=== PATIENT | female | born 1955 | race Caucasian/White ===

== ENCOUNTER 2016-06-20 10:31 | Outpatient (CLI) ==
--- NOTE | 2016-06-20 11:15 | MAMMO ---
EXAM: Bilateral digital screening mammogram History: Screening Comparison: Bilateral mammogram 06/14/2015 Findings: MLO and CC views of bilateral breasts demonstrate extremely dense breast parenchyma which limits the sensitivity of mammography. Stable benign bilateral vascular calcifications. There are no dominant masses, no suspicious microcalcifications and no architectural distortions Impression: Benign stable mammogram. Recommend followup routine screening mammography in 1 year. BIRADS 2
== END 2016-06-20 10:32 | disposition home or self-care (01) ==
LOC: RAD 10:31
PROVIDERS: ATTEND Nurse Practitioner Obstetrics & Gynecology
DX: Z12.31 Encounter for screening mammogram for malignant neoplasm of breast (principal)

== ENCOUNTER 2016-10-30 06:57 | Day surgery (SDC) ==
[2016-10-30] MEDS ORDERED: LIDOCAINE 1% 20 ML MDV ID ONE (07:16)
[2016-10-30] MEDS ORDERED: VERSED ONE (07:50)
[2016-10-30] MEDS ORDERED: DIPRIVAN 20 ML VIAL IVP ONE (07:50)
[2016-10-30 09:21] VITALS: BP 112/64; TEMP 98.2
--- NOTE | 2016-10-31 08:47 | OP ---
INDICATIONS FOR PROCEDURE: 61 year old female presents for a screening colonoscopy exam. She has a family history of colon cancer involving a grandfather and a cousin. MEDICATIONS: SEE ANESTHESIA NOTES. PROCEDURE: COLONOSCOPY. REPORT: The risks, benefits, alternatives and limitations were discussed in detail with the patient. Informed consent was obtained. After adequate sedation was achieved, a digital rectal exam revealed good tone, no masses. The colonoscope was introduced into the rectum and advanced under direct visual guidance to the cecum. The cecum was identified by the appendiceal orifice and IC valve. I then slowly withdrew the scope in circumferential manner and exam the mucosa quite carefully. I looked on the proximal and distal sides of the folds and flexures as best as possible. Sent the retroflex scope in the right colon and left colon where I could. I looked on the proximal distal side of folds and flexures as best as possible. I noted no abnormalities through out the entry length of the colon including on retroflex view of the anal canal. The pres was good. Withdraw time was 12 minute and 40 seconds. The patient tolerated the procedure well with stable vital signs and pulse oximetry throughout. IMPRESSION: 1. Normal colonoscopy RECOMMENDATIONS: 1. High fiber diet 2. Office visit as needed 3. Colonoscopy examination again in 10 years for screening purposes or sooner if she would have signs or symptoms to indicate otherwise. CC: Dr. Kristan BROWN
== END 2016-10-30 09:07 | disposition home or self-care (01) ==
LOC: SURG 06:57
PROVIDERS: ATTEND Internal Medicine Gastroenterology
DX: Z12.11 Encounter for screening for malignant neoplasm of colon (principal); Z80.0 Family history of malignant neoplasm of digestive organs

== ENCOUNTER 2017-06-25 08:16 | Outpatient (CLI) ==
--- NOTE | 2017-06-25 09:57 | DEXA ---
EXAM: Bone density HISTORY: Postmenopausal evaluation with history of vitamin D and calcium supplementation COMPARISON: DEXA 04/28/2014 TECHNIQUE: Digital images of the hips were provided and calculation of bone density was obtained. FINDINGS: DEXA of the hips was performed and of good quality. Total bone marrow density of 0.834 grams per square centimeter. (Prior 0.872) T score is - 1.4 and Z-score is - 0.3. IMPRESSION: Bone density of the hips demonstrate osteopenia by WHO criteria. Overall bone density kim s slightly decreased since prior examination. FRAX calculation tool demonstrates 10-year major osteoporotic fracture risk of 7.2% and hip fracture risk of 0.7% T score greater than -1 is normal T score -1 to -2.5 is osteopenia T score less than - 2.5 is osteoporosis
--- NOTE | 2017-06-26 11:40 | MAMMO ---
EXAM: Bilateral digital screening mammogram (2-D and 3-D) History: Screening Comparison: Bilateral mammogram 06/20/2016 Findings: MLO and CC views of bilateral breasts demonstrate heterogeneously dense breast parenchyma which can obscure small lesions. CAD was reviewed by the radiologist. Tomosynthesis was performed. Stable benign bilateral vascular calcifications. There are no dominant masses, no suspicious microcal cifications and no architectural distortions Impression: Benign stable mammogram. Recommend followup routine screening mammography in 1 year. BIRADS 2
== END 2017-06-25 08:17 | disposition home or self-care (01) ==
LOC: RAD 08:16
PROVIDERS: ATTEND Nurse Practitioner Obstetrics & Gynecology
DX: Z12.31 Encounter for screening mammogram for malignant neoplasm of breast (principal); Z78.0 Asymptomatic menopausal state
CPT/HCPCS: 77067

== ENCOUNTER 2018-06-30 10:18 | Outpatient (CLI) ==
--- NOTE | 2018-06-30 11:40 | MAMMO ---
EXAM: Bilateral digital screening mammogram (2-D and 3-D) History: Screening Comparison: Bilateral mammogram 06/25/2017 Findings: MLO and CC views of bilateral breasts demonstrate heterogeneously dense breast parenchyma which can obscure small lesions. CAD was reviewed by the radiologist. Tomosynthesis was performed. Stable benign bilateral vascular calcifications. There are no dominant masses, no suspicious microc alcifications and no architectural distortions Impression: Benign stable mammogram. Recommend followup routine screening mammography in 1 year. BIRADS 2, benign
== END 2018-06-30 10:19 | disposition home or self-care (01) ==
LOC: RAD 10:18
PROVIDERS: ATTEND Nurse Practitioner Obstetrics & Gynecology
DX: Z12.31 Encounter for screening mammogram for malignant neoplasm of breast (principal)